=== PATIENT | female | born 1965 | race Caucasian/White ===

== ENCOUNTER → 2019-11-04 09:36 | Outpatient (CLI) | payer OTHER, SELFPAY ==
--- NOTE | 2019-11-04 09:42 | DI.RAD.S_ITS ---
PROCEDURE: XR SHOULDER LT MIN 2V INDICATIONS: LT shoulder pain TECHNIQUE: 3 views of the shoulder were acquired. COMPARISON: None. FINDINGS: Bones: No fractures or dislocations. No suspicious bony lesions. Visualized ribs appear intact. Soft tissues: No suspicious soft tissue calcifications. IMPRESSION: No acute fractures of the left shoulder. Dictated by: Ethan Solorzano M.D. on 11/04/2019 at 9:07 Approved by: Ethan Solorzano M.D. on 11/04/2019 at 9:09
== END ==
PROVIDERS: Referring Provider Physician Assistant; Visit Provider Physician Assistant
DX: M25.512 Pain in left shoulder (principal)
CPT/HCPCS: 73030

== ENCOUNTER → 2020-02-23 16:35 | Outpatient (CLI) | payer OTHER, SELFPAY ==
[2020-02-23 17:14] LABS: COVID19 -Nasal RAPID Negative (Negative)
== END ==
PROVIDERS: Visit Provider Physician Assistant
DX: Z11.59 Encounter for screening for other viral diseases (principal)
CPT/HCPCS: 87635

== ENCOUNTER 2020-03-19 21:21 | Emergency (ER) | payer OTHER, SELFPAY ==
[2020-03-19 21:29] VITALS: BP 144/78; PULSE 75; RESP 16; TEMP 36.8; O2SAT 100; BMI 39.3
--- NOTE | 2020-03-19 21:37 | ED.ABDPAIN ---
HPI - Abdominal Pain General Chief Complaint: Nausea/Vomiting/Diarrhea Stated Complaint: wants check for e coli Time Seen by Provider: 03/19/20 21:29 Source: patient Mode of arrival: Ambulatory Limitations: no limitations History of Present Illness HPI narrative: Patient is a 54-year-old female presenting with diarrhea ongoing for the last 5 days. She is concerned because she thinks she may have gotten E coli from [facility]. She says she ate a frozen was on his she was the only 1 to eat it 5 days ago within a few hours she vomited and had diarrhea. The vomiting has since stopped however the diarrhea has persisted she has had multiple episodes a day all water not bloody. She has been able to keep fluids down, but feels the go right through her. Today is the 1st day that she feels like she is able to eat some solids. She has no abdominal pain. She overall feels like she is improving today. She says today at least her stool is brown colored instead of watery colored Associated symptoms: vomiting and diarrhea Related Data Home Medications Medication Instructions Recorded Confirmed lisinopril 20 mg tablet 20 mg PO DAILY 11/04/19 02/23/20 metoprolol succinate 100 mg 200 mg PO DAILY each 11/04/19 02/23/20 capsule sprinkle, ext. release 24 hr paroxetine HCl 10 mg tablet 10 mg PO DAILY 11/04/19 02/23/20 Allergies Allergy/AdvReac Type Severity Reaction Status Date / Time cephalexin [From Keflex] Allergy Rash Verified 02/23/20 17:04 Penicillins Allergy rash Verified 02/23/20 17:04 Review of Systems Review of Systems Narrative: GENERAL: Denies chills, fatigue, malaise, fever, sweats, travel HEENT: Denies sinus pain, ear pain, sore throat, difficulty swallowing, neck pain RESPIRATORY: Denies dyspnea, cough, wheezing, hemoptysis, sputum. CARDIOVASCULAR: Denies chest pain, palpitations, orthopnea, edema GASTROINTESTINAL: See HPI : Denies dysuria, frequency, incontinence, hematuria, urinary retention, flank pain. MUSCULOSKELETAL: Denies weakness, joint pain, or bony pain SKIN: No rash, no erythema, no pruritus NEUROLOGIC: Denies weakness, dizziness, headache, numbness, change in speech, confusion PSYCHIATRIC: No concerning psychosocial issues. 12 point review of systems is negative except for those stated above and HPI Patient History Medical History Cough Exposure to COVID-19 virus Social History Smoking Status: Never smoker Exam Initial Vital Signs Initial Vital Signs: Vital Signs Temperature 98.2 F 03/19/20 21:29 Pulse Rate 75 03/19/20 21:29 Respiratory Rate 16 03/19/20 21:29 Blood Pressure 144/78 H 03/19/20 21:29 Pulse Oximetry 100 03/19/20 21:29 GENERAL: Well-appearing, well-nourished and in no acute distress. HEENT: Head atraumatic,EOMI, pupils reactive, face symmetric, moist mucous membranes CARDIOVASCULAR: Regular rate and rhythm without murmurs, rubs or gallops. RESPIRATORY: Breath sounds equal bilaterally, no wheezes rales or rhonchi. ABDOMEN: Soft, nontender. Normoactive bowel sounds all 4 quadrants. No guarding or rebound. EXTREMITIES: Normal range of motion, no clubbing or edema. Neurovascularly intact NEUROLOGICAL: Alert and oriented x4.Normal gait and speech. Cranial nerves II through XII grossly intact. SKIN: Warm, dry, no laceration, no petechiae, no rashes or lesions. Course Orders Ordered: ED Orders 03/19/20 21:38 GI Panel (Film Array) Stat Urine Culture Stat Urine Microscopic Stat 03/19/20 21:55 Complete Blood Count AUTO DIFF Stat Comprehensive Metabolic Panel Stat Lipase Stat Discontinued Medications Sodium Chloride (Normal Saline 0.9%) 1,000 mls @ 1,000 mls/hr IV CONT ROSAS Last Infusion: 03/19/20 23:51 Dose: 0 mls/hr Documented by: Admin: 03/19/20 22:11 Dose: 1,000 mls/hr Documented by: JENARO Vital Signs Vital signs: Vital Signs - 8 hr 03/19/20 21:29 03/19/20 23:07 03/20/20 00:00 Temperature 98.2 F Pulse Rate 75 76 74 Respiratory Rate 16 Blood Pressure 144/78 H 146/65 H Pulse Oximetry 100 97 98 03/20/20 00:04 Temperature Pulse Rate 76 Respiratory Rate 16 Blood Pressure Pulse Oximetry 98 MDM - Abdominal Pain Lab Data Attestation: I reviewed the patient's lab results. Result diagrams: 03/19/20 21:55 03/19/20 21:55 Labs: Lab Results 03/19/20 03/19/20 03/19/20 Range/Units 21:38 21:38 21:55 WBC 8.8 (4.5-11.0) X10^3/uL RBC 5.36 H (4.0-5.2) X10^6/uL Hgb 13.9 (12.0-16.0) g/dL Hct 43.3 (36-46) % MCV 80.8 (80-100) fL MCH 26.0 (26-34) PG MCHC 32.2 (30-36) % RDW 14.4 (11.6-14.8) % Plt Count 268 (150-400) X10^3/uL Neut % (Auto) 62.8 (50-75) % Lymph % (Auto) 23.6 L (25-40) % [place] % (Auto) 12.4 (3-14) % Eos % (Auto) 0.8 L (2-4) % Baso % (Auto) 0.4 (0-2) % Neut # (Auto) 5500 (6618-7845) /uL Lymph # (Auto) 2100 (4522-8024) /uL [place] # (Auto) 1100 H (0-900) /uL Eos # (Auto) 100 (0-450) /uL Baso # (Auto) 0 (0-100) /uL Sodium (137-145) mmol/L Potassium (3.4-5.1) mmol/L Chloride (98-107) mmol/L Carbon Dioxide (22-32) mmol/L BUN (7-17) mg/dL Creatinine (0.52-1.04) mg/dL Estimated GFR (>60) mL/min BUN/Creatinine Ratio (6-22) Glucose (70-100) mg/dL Calcium (8.4-10.2) mg/dL Total Bilirubin (0.2-1.3) mg/dL AST (14-36) IU/L ALT (<35) IU/L Alkaline Phosphatase (38-126) U/L Total Protein (6.3-8.2) g/dL Albumin (3.5-5.0) g/dL Globulin (1.7-4.1) g/dL Albumin/Globulin Ratio (1.0-2.8) Lipase (23-300) U/L Urine RBC 1-5/hpf (0-5/HPF) Urine WBC 5-10/hpf H (0-5/HPF) Ur Squamous Epith Cells 1-5 /hpf (0-5/HPF) Urine Bacteria Moderate (10-30) H (None) Hyaline Casts 1-5/lpf (None) Granular Casts 0-1/lpf (None) Ur Culture Indicated? Specimen cultured Stl C. cayetanensis PCR Not detected (Not Detect) Stool Rotavirus (PCR) Not detected (Not Detect) Stool Adenovirus (PCR) Not detected (Not Detect) Stool Astrovirus (PCR) Not detected (Not Detect) Stool Cryptosporidium PCR Not detected (Not Detect) Stl E.coli Shiga Tox PCR Not detected (Not Detect) St Sh/Enteroin Ecoli PCR Detected H (Not Detect) Stool E coli O157 PCR Not detected (Not Detect) Stl Enterotoxigenic E PCR Detected H (Not Detect) Stool EPEC (PCR) Detected H (Not Detect) Stl E. histolytica PCR Not detected (Not Detect) Stool Giardia Lamblia PCR Not detected (Not Detect) Stool Sapovirus (PCR) Not detected (Not Detect) Stl P. shigelloides PCR Not detected (Not Detect) St Y.enterocolitica PCR Not detected (Not Detect) Stool Vibrio (PCR) Not detected (Not Detect) Stl Vibrio cholerae PCR Not detected (Not Detect) Stl Enteroaggr Ecoli PCR Detected H (Not Detect) Stl Norovirus GI/GII PCR Detected H (Not Detect) Campylobacter (PCR) Not detected (Not Detect) C. difficile Tox (PCR) Not detected (Not Detect) Salmonella (PCR) Not detected (Not Detect) 03/19/20 Range/Units 21:55 WBC (4.5-11.0) X10^3/uL RBC (4.0-5.2) X10^6/uL Hgb (12.0-16.0) g/dL Hct (36-46) % MCV (80-100) fL MCH (26-34) PG MCHC (30-36) % RDW (11.6-14.8) % Plt Count (150-400) X10^3/uL Neut % (Auto) (50-75) % Lymph % (Auto) (25-40) % Brewster % (Auto) (3-14) % Eos % (Auto) (2-4) % Baso % (Auto) (0-2) % Neut # (Auto) (3056-2892) /uL Lymph # (Auto) (2388-9419) /uL Brewster # (Auto) (0-900) /uL Eos # (Auto) (0-450) /uL Baso # (Auto) (0-100) /uL Sodium 142 (137-145) mmol/L Potassium 3.6 (3.4-5.1) mmol/L Chloride 110 H (98-107) mmol/L Carbon Dioxide 24 (22-32) mmol/L BUN 17 (7-17) mg/dL Creatinine 0.95 (0.52-1.04) mg/dL Estimated GFR > 60.0 (>60) mL/min BUN/Creatinine Ratio 17.9 (6-22) Glucose 94 (70-100) mg/dL Calcium 9.4 (8.4-10.2) mg/dL Total Bilirubin 1.0 (0.2-1.3) mg/dL AST 39 H (14-36) IU/L ALT 39 H (<35) IU/L Alkaline Phosphatase 73 (38-126) U/L Total Protein 8.3 H (6.3-8.2) g/dL Albumin 4.4 (3.5-5.0) g/dL Globulin 3.9 (1.7-4.1) g/dL Albumin/Globulin Ratio 1.1 (1.0-2.8) Lipase 72 (23-300) U/L Urine RBC (0-5/HPF) Urine WBC (0-5/HPF) Ur Squamous Epith Cells (0-5/HPF) Urine Bacteria (None) Hyaline Casts (None) Granular Casts (None) Ur Culture Indicated? Stl C. cayetanensis PCR (Not Detect) Stool Rotavirus (PCR) (Not Detect) Stool Adenovirus (PCR) (Not Detect) Stool Astrovirus (PCR) (Not Detect) Stool Cryptosporidium PCR (Not Detect) Stl E.coli Shiga Tox PCR (Not Detect) St Sh/Enteroin Ecoli PCR (Not Detect) Stool E coli O157 PCR (Not Detect) Stl Enterotoxigenic E PCR (Not Detect) Stool EPEC (PCR) (Not Detect) Stl E. histolytica PCR (Not Detect) Stool Giardia Lamblia PCR (Not Detect) Stool Sapovirus (PCR) (Not Detect) Stl P. shigelloides PCR (Not Detect) St Y.enterocolitica PCR (Not Detect) Stool Vibrio (PCR) (Not Detect) Stl Vibrio cholerae PCR (Not Detect) Stl Enteroaggr Ecoli PCR (Not Detect) Stl Norovirus GI/GII PCR (Not Detect) Campylobacter (PCR) (Not Detect) C. difficile Tox (PCR) (Not Detect) Salmonella (PCR) (Not Detect) Point of care testing: Urine Dip Bedside Urine Glucose Negative Bedside Urine Bilirubin ++ 2 Bedside Urine Ketone +/- 5 Urine Specific [place] 1.030 Bedside Urine Occult Blood - Negative Bedside Urine pH 5.5 Bedside Urine Protein + 30 Bedside Urine Urobilinogen - Negative Bedside Urine Nitrite - Negative Bedside Urine Leukocytes + 70 Esterase MDM Narrative Medical decision making narrative: The patient overall appears well not dehydrated clinically or by labs and hemodynamically stable she has no leukocytosis she is afebrile. She has multiple strains of E coli and norovirus detected in her GI panel. At this time no indication for antibiotic treatment. She said she is clinically starting to improve she is tolerating food and diarrhea does seem to be slowing. Although she has had few episodes in the ED. at this time I recommend she follow up outpatient with her PCP and return to the ED if needed. Discharge Plan Departure Patient Disposition: Home Clinical Impression: Norovirus, E. coli gastroenteritis Instructions: Norovirus Infection, DI for Bacterial Gastroenteritis -- Adult Activity Restrictions/Additional Instructions: *You have been diagnosed with gastroenteritis both E coli and norovirus *What to do: At this time I think we should let your body try to heal on its own with out antibiotics. However if your symptoms worsen you may require antibiotics. Please increase her fluid intake with things like Gatorade, broth, Jell-O, applesauce etc. you may increase food intake as you feel it is tolerated *Continue to take medications as directed Imodium-take as directed do not exceed more than 4 tabs in 24 hours *Follow up with your primary care provider in 2-3 days *Return to ER if you should have fever, not tolerating fluids, pain or any new, worsening or concerning symptoms Prescriptions: No Action paroxetine HCl [Paxil] 10 mg tablet 10 mg PO DAILY RF: 0 lisinopril 20 mg tablet 20 mg PO DAILY RF: 0 metoprolol succinate 100 mg capsule,sprinkle,ER 24hr 200 mg PO DAILY RF: 0 Referrals: Miscellaneous,Doctor, MD [Primary Care Provider] -
[2020-03-19] MEDS: SODIUM CHLORIDE 0.9% 1,000 ML 1000 ML IV (22:11)
[2020-03-19 22:20] LABS: Alanine Aminotransferase 39 IU/L (<35); Albumin 4.4 g/dL (3.5-5.0); Albumin Globulin Ratio 1.1 (1.0-2.8); Alkaline Phosphatase 73 U/L (38-126); Aspartate Aminotransferase 39 IU/L (14-36); BUN Creatinine Ratio 17.9 (6-22); Blood Urea Nitrogen 17 mg/dL (7-17); Calcium 9.4 mg/dL (8.4-10.2); Carbon Dioxide 24 mmol/L (22-32); Chloride 110 mmol/L (98-107); Estimated Glomerular Filt Rate > 60.0 mL/min (>60); Globulin 3.9 g/dL (1.7-4.1); Glucose 94 mg/dL (70-100); HEMOLYSIS 21 (0-50); Lipase 72 U/L (23-300); Potassium 3.6 mmol/L (3.4-5.1); Sodium 142 mmol/L (137-145); Total Protein 8.3 g/dL (6.3-8.2)
[2020-03-19 22:25] LABS: Add Manual Diff / Slide Review NO; Basophils Absolute Auto 0 /uL (0-100); Basophils Percent Auto 0.4 % (0-2); Eosinophils Absolute Auto 100 /uL (0-450); Eosinophils Percent Auto 0.8 % (2-4); Hematocrit 43.3 % (36-46); Hemoglobin 13.9 g/dL (12.0-16.0); Lymphocytes Absolute Auto 2100 /uL (1100-4500); Lymphocytes Percent Auto 23.6 % (25-40); Mean Corpuscular HGB Conc 32.2 % (30-36); Mean Corpuscular Volume 80.8 fL (80-100); Monocytes Absolute Auto 1100 /uL (0-900); Monocytes Percent Auto 12.4 % (3-14); Neutrophils Absolute Auto 5500 /uL (1500-7000); Neutrophils Percent Auto 62.8 % (50-75); Platelet Count 268 X10^3/uL (150-400); Red Blood Cell Count 5.36 X10^6/uL (4.0-5.2); Red Cell Distribution Width 14.4 % (11.6-14.8); White Blood Cell Count 8.8 X10^3/uL (4.5-11.0)
[2020-03-19 22:31] LABS: RBC Urine 1-5/HPF (0-5/HPF); Squamous Epithelial Cell Urine 1-5 /HPF (0-5/HPF); WBC Urine 5-10/HPF (0-5/HPF)
[2020-03-19 22:32] LABS: Bacteria Urine Moderate (10-30); Culture Indicated Urine Specimen Cultured; Granular Casts Urine 0-1/LPF; Hyaline Casts Urine 1-5/LPF
[2020-03-19 23:07] VITALS: PULSE 76; O2SAT 97
[2020-03-19 23:18] LABS: Campylobacter Not Detected (Not Detect); Clostridium difficile toxin AB Not Detected (Not Detect); Enteroaggregative E.coli Detected (Not Detect); Enteropathogenic E.coli Detected (Not Detect); Enterotoxigenic E.coli It/st Detected (Not Detect); Plesiomonsa shigelloides Not Detected (Not Detect); Salmonella Not Detected (Not Detect); Shiga-like toxin-prod E.coli Not Detected (Not Detect); Vibrio Not Detected (Not Detect); Vibrio cholerae Not Detected (Not Detect); Yersinia enterocolitica Not Detected (Not Detect)
[2020-03-19 23:19] LABS: Adenovirus F 40/41 Not Detected (Not Detect); Astrovirus Not Detected (Not Detect); Cryptosporidium Not Detected (Not Detect); Cyclospora cayetanensis Not Detected (Not Detect); Entamoeba histolytica Not Detected (Not Detect); Giardia lamblia Not Detected (Not Detect); Norovirus GI/GII Detected (Not Detect); Rotavirus A Not Detected (Not Detect); Sapovirus Not Detected (Not Detect)
[2020-03-20] VITALS: BP 146/65; PULSE 74; O2SAT 98
[2020-03-20 00:04] VITALS: PULSE 76; RESP 16; O2SAT 98
[2020-03-20 15:02] LABS: Shigella/Enteroinvasive E.coli Detected (Not Detect)
== END 2020-03-20 00:10 | disposition home or self-care (01) ==
PROVIDERS: Emergency Provider Emergency Medicine
DX: K52.9 Noninfective gastroenteritis and colitis, unspecified (principal); A08.11 Acute gastroenteropathy due to Norwalk agent; A04.4 Other intestinal Escherichia coli infections; R11.2 Nausea with vomiting, unspecified
CPT/HCPCS: 36415; 80053; 81003; 81015; 83690; 85025; 87077; 87086; 87186; 87507; 96360; 96361; 99283; 99284

== ENCOUNTER → 2020-05-07 13:14 | Outpatient (CLI) | payer OTHER, SELFPAY ==
[2020-05-07 14:03] LABS: COVID19 -Nasal RAPID Negative (Negative)
== END ==
PROVIDERS: Visit Provider Physician Assistant
DX: Z20.822 Contact with and (suspected) exposure to COVID-19 (principal); R05 Cough
CPT/HCPCS: 87635

== ENCOUNTER → 2021-05-21 17:56 | Outpatient (CLI) | payer OTHER, SELFPAY | PROVIDERS: Visit Provider Nurse Practitioner Family | DX: N34.3 Urethral syndrome, unspecified (principal) | CPT/HCPCS: 87086 ==

== ENCOUNTER 2021-05-21 18:34 | Emergency (ER) | payer OTHER, SELFPAY ==
[2021-05-21 18:45] VITALS: BP 216/91; PULSE 58; RESP 18; TEMP 36.6; O2SAT 95; BMI 36.8
--- NOTE | 2021-05-21 21:15 | ED.GENADULT ---
HPI - General Adult General Chief complaint: Urogenital-Female Stated complaint: Possible Kidney Stones Time Seen by Provider: 05/21/21 21:15 Source: patient Mode of arrival: Ambulatory History of Present Illness HPI narrative: 55-year-old woman with hypertension, depression just a couple of weeks ago presents with left flank pain noted for the last 48 hours Pain was worse this morning was deep in the left flank and described as severe associated with a sense of bladder fullness and frequency. She was seen at urgent care earlier and urinalysis showed blood but no leukocytes or nitrates. She is seen by her chiropractor in with some adjustments of some of her other musculoskeletal complaints are improved. She notes that about a week ago while she was on her honeymoon in [place] she twisted her left ankle and left knee which was causing some back pain. The chiropractor was able to alleviate the majority of those issues however the left flank pain, while somewhat improved, is still present. She still has the bladder fullness and sense of frequency. She describes no vaginal discharge. She has an episode of constipation a couple of days ago that was treated with Pepto-Bismol had a large hard stool with some bright red blood on the outside but a normal stool noted today. She describes no fevers, cough, vomiting, nausea. No headaches. No skin changes. She also has some concerns about her blood pressure. Related Data Home Medications Medication Instructions Recorded Confirmed lisinopril 20 mg tablet 20 mg PO DAILY 11/04/19 05/21/21 metoprolol succinate 100 mg 200 mg PO DAILY each 11/04/19 05/21/21 capsule sprinkle, ext. release 24 hr paroxetine HCl 10 mg tablet (Paxil) 10 mg PO DAILY 11/04/19 05/21/21 Previous Rx's Medication Instructions Recorded albuterol sulfate 90 mcg/actuation 1 inh INHALATION Q4-6H PRN #18 g 05/07/20 aerosol inhaler benzonatate 100 mg capsule 100 mg PO BEDTIME #20 cap 05/07/20 sulfamethoxazole 800 1 tab PO BID #10 tab 05/21/21 mg-trimethoprim 160 mg tablet (Bactrim DS) Allergies Allergy/AdvReac Type Severity Reaction Status Date / Time cephalexin [From Keflex] Allergy Rash Verified 05/21/21 18:50 Penicillins Allergy rash Verified 02/07/22 18:50 Review of Systems Review of Systems Narrative: Remainder of complete review of systems is otherwise unremarkable except for that included in the HPI. Patient History Medical History Cough Exposure to COVID-19 virus Social History Smoking Status: Never smoker Smoking Status: Never smoker alcohol intake frequency: holidays/special occasions only Substance Use Type: does not use Exam Initial Vital Signs Initial Vital Signs: Vital Signs Temperature 97.9 F 05/21/21 18:45 Pulse Rate 58 L 05/21/21 18:45 Respiratory Rate 18 05/21/21 18:45 Blood Pressure 216/91 H 05/21/21 18:45 Pulse Oximetry 95 05/21/21 18:45 General: Healthy appearing, in no acute distress. Able to give a complete and coherent history. Well-nourished well-developed HEENT: Moist mucous membranes, normal sclera with reactive pupils, Respiratory: Lungs are clear to auscultation, no wheezing no rales no rhonchi. Full and symmetrical air movement Cardiac: Regular rate and rhythm no murmurs no bruits Abdomen: Soft, nontender, good bowel tones, mild left flank pain. Skin: Warm and dry, no rashes, no abnormalities around the flank/area of tenderness Neurologic: Grossly neurologically intact with no obvious asymmetries or abnormalities Extremities: No trauma, well perfused Psych: Cooperative, appropriate insight and affect Course Orders Ordered: ED Orders 05/21/21 21:28 CT kidney ureter bladder (KUB) Stat 05/21/21 21:54 Urine Culture Stat Discontinued Medications Trimethoprim/Sulfamethoxazole (Trimeth/Sulfa 160/800 (Ds) Tablet) 1 tab PO NOW ONE Stop: 05/21/21 21:55 Vital Signs Vital signs: Vital Signs - 8 hr 05/21/21 18:45 05/21/21 21:44 Temperature 97.9 F Pulse Rate 58 L Respiratory Rate 18 Blood Pressure 216/91 H 186/86 H Pulse Oximetry 95 Medical Decision Making Imaging Data CT scan - abdomen/pelvis: Radiologist's Impression: FINDINGS:? Image quality:? Excellent.? ? Lung bases:? Unremarkable.? ? Heart:? No significant findings. ? URINARY: Right Kidney: ? No stones or hydronephrosis.? Right Ureter:? No kidney stone.? The distal ureters have surrounding inflammation. ? Left Kidney: ? No stones or hydronephrosis. Left Ureter:? No kidney stone.? The distal ureters have surrounding inflammation. ? Bladder:? Normal wall thickness. No stones. ? ? ? ABDOMEN: Liver:? Unremarkable.? ? Gallbladder:? Unremarkable.? ? Biliary ducts:? Unremarkable.? ? Pancreas:? Unremarkable.? ? Spleen:? Unremarkable.? ? Adrenal Glands:? Unremarkable.? ? ? Stomach and Bowel:? Stomach, small bowel loops, and colon are unremarkable.? Small hiatal hernia Peritoneum:? No abnormal intraperitoneal fluid.? No free air.? The appendix is normal.? Approved report ? Ventral Wall: ? No hernia.? Abdominal Nodes:? No enlarged retroperitoneal or mesenteric lymph nodes.? Vessels:? Aorta and inferior vena cava are normal in size.? ? PELVIS: Pelvic Organs:? Unremarkable.? ? Pelvic Nodes: Unremarkable. Miscellaneous: No inguinal hernias are seen. ? ? ? Bones:? Unremarkable. ? IMPRESSION:? Inflammation along the courses of both ureters suspicious for urinary tract infection, no kidney stone identified.? Please correlate with urinalysis. ? ? Dictated by: Elton Miller M.D. on 05/21/2021 at 21:41? ?? MDM Narrative Medical decision making narrative: 55-year-old woman suspect from her honeymoon complaining of left flank pain. Initial urinalysis showed only blood however CT scan suggests bilateral distal ureteral inflammation more consistent with a bladder infection. Will have her collect a another urine sample and send just for culture and will begin her on 5 days of with a presumptive urinary tract infection diagnosis. Findings are reviewed with her. Lack of findings including no evidence of kidney stones, abdominal masses or tumors, diverticulitis, appendicitis and colitis are all ruled out with this reassuring CT scan. Questions are answered she is safe for home discharge Discharge Plan Departure Patient Disposition: Home Clinical Impression: Urinary tract infection Qualifiers: Urinary tract infection type: acute cystitis Hematuria presence: with hematuria Qualified Code(s): N30.01 - Acute cystitis with hematuria High blood pressure Qualifiers: Hypertension type: primary hypertension Qualified Code(s): I10 - Essential (primary) hypertension Instructions: DI for Kidney Infection, DI for Urinary Tract Infection (UTI) Activity Restrictions/Additional Instructions: Thank you for coming in today Your initial urinalysis showed blood but no obvious signs of urinary tract infection. Follow-up CT scan shows very normal findings with no significant intra-abdominal or pelvic pathology aside from some mild swelling in the distal part of the ureters. The ureters at the tubes that connect the kidneys to the bladder and swelling in this area typically suggests a bladder infection. I have sent your urine sample for culture and if it ends up growing a bacteria that is not appropriately treated with Septra/Bactrim then we will call you with the change in antibiotics. Have given you a prescription for Bactrim to be taken for 5 days, morning and evening. Prescription was electronically transmitted to [facility]. Using 400 mg of ibuprofen (2 [id number] pills) and 1 Tylenol every 6 hours can be very helpful in controlling pain. When you order picker the antibiotics, I would recommend picking up a blood pressure cuff as well. Please keep track of your blood pressures over the next couple of days and bring those numbers in to your doctor appointment when you meet Dr. Fuller so that you can discuss your blood pressure and blood pressure medications. If you have new or worsening symptoms please feel free to return to the ER Prescriptions: New sulfamethoxazole-trimethoprim [Bactrim DS] 800-160 mg tablet 1 tab PO BID Qty: 10 0RF No Action paroxetine HCl [Paxil] 10 mg tablet 10 mg PO DAILY 0RF lisinopril 20 mg tablet 20 mg PO DAILY 0RF metoprolol succinate 100 mg capsule,sprinkle,ER 24hr 200 mg PO DAILY 0RF albuterol sulfate 90 mcg/actuation HFA aerosol inhaler 1 inh inhalation Q4-6H PRN (Reason: shortness of breath) Qty: 18 0RF benzonatate 100 mg capsule 100 mg PO BEDTIME Qty: 20 0RF Referrals: Miscellaneous,Doctor, MD [Primary Care Provider] -
--- NOTE | 2021-05-21 21:28 | DI.CT.S_ITS ---
PROCEDURE: CT KIDNEY URETER BLADDER (KUB) INDICATIONS: left flank pain, possible stone TECHNIQUE: Axial sections were acquired from the lung bases to the pubic symphysis. Coronal and sagittal reformats were performed. For radiation dose reduction, the following was used: automated exposure control, adjustment of mA and/or kV according to patient size. COMPARISON: None. FINDINGS: Image quality: Excellent. Lung bases: Unremarkable. Heart: No significant findings. URINARY: Right Kidney: No stones or hydronephrosis. Right Ureter: No kidney stone. The distal ureters have surrounding inflammation. Left Kidney: No stones or hydronephrosis. Left Ureter: No kidney stone. The distal ureters have surrounding inflammation. Bladder: Normal wall thickness. No stones. ABDOMEN: Liver: Unremarkable. Gallbladder: Unremarkable. Biliary ducts: Unremarkable. Pancreas: Unremarkable. Spleen: Unremarkable. Adrenal Glands: Unremarkable. Stomach and Bowel: Stomach, small bowel loops, and colon are unremarkable. Small hiatal hernia Peritoneum: No abnormal intraperitoneal fluid. No free air. The appendix is normal. Approved report Ventral Wall: No hernia. Abdominal Nodes: No enlarged retroperitoneal or mesenteric lymph nodes. Vessels: Aorta and inferior vena cava are normal in size. PELVIS: Pelvic Organs: Unremarkable. Pelvic Nodes: Unremarkable. Miscellaneous: No inguinal hernias are seen. Bones: Unremarkable. IMPRESSION: Inflammation along the courses of both ureters suspicious for urinary tract infection, no kidney stone identified. Please correlate with urinalysis. Dictated by: Elton Miller M.D. on 05/21/2021 at 21:41 Approved by: Elton Miller M.D. on 05/21/2021 at 21:47
[2021-05-21 21:44] VITALS: BP 186/86
[2021-05-21] MEDS: TRIMETH/SULFA 160/800 (DS) TABLET 1 TAB PO (22:30)
== END 2021-05-21 22:36 | disposition home or self-care (01) ==
PROVIDERS: Emergency Provider Emergency Medicine
DX: N30.01 Acute cystitis with hematuria (principal); I10 Essential (primary) hypertension; N34.3 Urethral syndrome, unspecified
CPT/HCPCS: 74176; 87077; 87086; 87186; 99284

== ENCOUNTER 2022-09-14 08:24 | Emergency (ER) | payer OTHER, SELFPAY ==
[2022-09-14 08:29] VITALS: BP 188/91; PULSE 82; RESP 20; TEMP 36.6; O2SAT 97; BMI 30.9
[2022-09-14 11:32] VITALS: BP 171/89; PULSE 66; RESP 18; O2SAT 98
--- NOTE | 2022-09-14 11:50 | ED.DENTAL ---
HPI - Dental/Oral <BRANDY Moreno - Last Filed: 09/14/22 11:55> General Chief complaint: Dental/Oral Stated complaint: RT side of facing swelling T-2 infection in gum Time Seen by Provider: 09/14/22 10:17 Source: patient Mode of arrival: Family Vehicle History of Present Illness HPI Narrative: 57-year-old female, nonsmoker, presents to the walk-in clinic with suspected right-sided upper dental abscess x3 days. Patient has been taking ibuprofen along with warm salt water swish and spit, but symptoms are persistent. Patient has noticed that she is developing some facial swelling, adjacent to the painful gum region. Patient recently saw her dentist for evaluation of an old implant but no treatment on the affected side her mouth. Pain is currently at 5/10. Related Data Home Medications Medication Instructions Recorded Confirmed lisinopril 20 mg tablet 20 mg PO DAILY 11/04/19 05/21/21 metoprolol succinate 100 mg 200 mg PO DAILY 11/04/19 05/21/21 capsule sprinkle, ext. release 24 hr paroxetine HCl 10 mg tablet (Paxil) 10 mg PO DAILY 11/04/19 05/21/21 Previous Rx's Medication Instructions Recorded albuterol sulfate 90 mcg/actuation 1 inh inhalation Q4-6H PRN 05/07/20 aerosol inhaler shortness of breath #18 grams benzonatate 100 mg capsule 100 mg PO BEDTIME #20 caps 05/07/20 sulfamethoxazole 800 1 tab PO BID #10 tabs 05/21/21 mg-trimethoprim 160 mg tablet (Bactrim DS) amoxicillin 875 mg-potassium 1 tab PO BID Dental abscess 10 09/14/22 clavulanate 125 mg tablet days #20 tabs oxycodone-acetaminophen 5 mg-325 1 tab PO Q4-6H PRN pain #10 tabs 09/14/22 mg tablet (Percocet) Allergies Allergy/AdvReac Type Severity Reaction Status Date / Time cephalexin [From Keflex] Allergy Rash Verified 09/14/22 08:35 Penicillins Allergy rash Verified 09/14/22 08:35 Review of Systems <BRANDY Moreno - Last Filed: 09/14/22 11:55> Review of Systems Narrative: Narrative: See HPI. GENERAL: Denies chills, fatigue, fever, sweats. HEENT: Denies sinus pain, ear pain, sore throat, difficulty swallowing, dizziness. Endorses right-sided gum pain and mild facial swelling. RESPIRATORY: Denies dyspnea, cough, wheezing, sputum. CARDIOVASCULAR: Denies chest pain, palpitations, edema. GASTROINTESTINAL: Denies nausea, vomiting, abdominal pain, diarrhea, constipation. : Denies dysuria, frequency, incontinence, hematuria, urinary retention, flank pain. MSK: Denies weakness, joint pain, or bony pain. SKIN: Denies rash, skin lesions, or pruritis. NEUROLOGIC: Denies weakness, dizziness, headache, numbness, confusion. PSYCHIATRIC: No concerning psychosocial issues. Patient History <BRANDY Moreno - Last Filed: 09/14/22 11:55> Medical History Cough Exposure to COVID-19 virus Social History Smoking Status: Never smoker Smoking Status: Never smoker alcohol intake frequency: holidays/special occasions only Substance Use Type: does not use Exam <BRANDY Moreno - Last Filed: 09/14/22 11:55> Narrative Exam Narrative: Exam Narrative: GENERAL: This is a well-nourished, well-developed patient, in no acute distress. HEAD: Atraumatic. Normocephalic. EYES: Pupils equal round and reactive. Extraocular motions intact. No scleral icterus, injection or drainage. ENT: Nose without bleeding, purulent drainage. Throat without erythema, tonsillar hypertrophy or exudate. Uvula midline. Airway patent. NECK: Trachea midline. No JVD or lymphadenopathy. Nontender. CARDIOVASCULAR: Regular rate and rhythm without murmurs, peripheral pulses intact, cap refill <2 sec. RESPIRATORY: Breath sounds equal and clear bilaterally. No wheezes, rales, or rhonchi. No cough. No increased respiratory effort. No accessory muscle use. MSK: Moves all extremities. Normal range of motion, no clubbing or edema. Neurovascularly intact. NEURO: A&O x 3. SKIN: Warm, dry, no rashes or lesions noted. Mild right-sided facial swelling with no increased redness, warmth or signs of cellulitis. Initial Vital Signs Initial Vital Signs: Vital Signs Temperature 97.9 F 09/14/22 08:29 Pulse Rate 82 09/14/22 08:29 Respiratory Rate 20 09/14/22 08:29 Blood Pressure 188/91 H 09/14/22 08:29 Pulse Oximetry 97 09/14/22 08:29 Oxygen Delivery Method Room Air 09/14/22 08:29 Reviewed <Ayanna Hernandez DO - Last Filed: 09/15/22 06:55> Initial Vital Signs Initial Vital Signs: Vital Signs Temperature 97.9 F 09/14/22 08:29 Pulse Rate 82 09/14/22 08:29 Respiratory Rate 20 09/14/22 08:29 Blood Pressure 188/91 H 09/14/22 08:29 Pulse Oximetry 97 09/14/22 08:29 Oxygen Delivery Method Room Air 09/14/22 08:29 Course <BRANDY Moreno - Last Filed: 09/14/22 11:55> Vital Signs Vital signs: Vital Signs - 8 hr 09/14/22 08:29 09/14/22 11:32 Temperature 97.9 F Pulse Rate 82 66 Respiratory Rate 20 18 Blood Pressure 188/91 H 171/89 H Pulse Oximetry 97 98 Oxygen Delivery Method Room Air Room Air <Ayanna Hernandez DO - Last Filed: 09/15/22 06:55> Vital Signs Vital signs: Vital Signs - 8 hr 09/14/22 08:29 09/14/22 11:32 Temperature 97.9 F Pulse Rate 82 66 Respiratory Rate 20 18 Blood Pressure 188/91 H 171/89 H Pulse Oximetry 97 98 Oxygen Delivery Method Room Air Room Air MDM - Dental/Oral <BRANDY Moreno - Last Filed: 09/14/22 11:55> Differential Diagnosis Differential diagnosis: Likely dental abscess; Unlikely fracture of tooth MDM Narrative Medical decision making narrative: 57-year-old female, nonsmoker presents to the emergency department with suspected right-sided dental abscess. Pain and swelling noted to right upper gum adjacent to tooth #5. History of rash with penicillin. Will treat the dental abscess with Augmentin and a short course of pain medication for breakthrough pain, in case ibuprofen and do not control her pain. Instructed patient to follow up with her dentist or family doctor as needed with strict ER return precautions provided to patient and spouse. Patient and spouse verbalized understanding and were agreeable to course of action. Discharge Plan Departure Patient Disposition: Home Clinical Impression: Dental abscess Instructions: DI for Dental Pain Activity Restrictions/Additional Instructions: *You have been diagnosed with a dental abscess. We will treat this with Augmentin and a short course of pain medication. If at any point you develop shortness of breath, sensation that her throat is closing or hives, please stop taking the antibiotics and return to the emergency department immediately. Otherwise, please follow-up with your dentist on Friday to ensure symptoms are improving. Additionally, you may follow up with your family doctor as needed. *What to do: *Please continue to take your regular medications as directed. [x ] New medication prescriptions sent to your pharmacy: [[facility]] [ ] New medication written as a paper prescription [ ] No new medications given *Please follow up with your primary care provider in 2-3 days, call for an appointment. Let them know you were seen in the Emergency Department and that we ask that you be seen in follow up. We will electronically transmit a record of today's note if your PCP is in our system *If you do not have a primary care provider please contact the [facility] Resource line at [phone]. They will ask some questions about your medical history and help get you set up with a doctor in the community. ? Return to ER if you should have any new, worsening or concerning symptoms, such as worsening pain, severe headache, confusion, chest pain, difficulty breathing, fever greater than 101 F, shaking chills, persistent vomiting to the point that you cannot drink fluids, or other new or worsening symptoms. Prescriptions: New amoxicillin-pot clavulanate 875-125 mg tablet 1 tab PO BID 10 Days Qty: 20 0RF oxycodone-acetaminophen [Percocet] 5-325 mg tablet 1 tab PO Q4-6H PRN (Reason: pain) Qty: 10 0RF No Action paroxetine HCl [Paxil] 10 mg tablet 10 mg PO DAILY lisinopril 20 mg tablet 20 mg PO DAILY metoprolol succinate 100 mg capsule,sprinkle,ER 24hr 200 mg PO DAILY albuterol sulfate 90 mcg/actuation HFA aerosol inhaler 1 inh inhalation Q4-6H PRN (Reason: shortness of breath) Qty: 18 0RF benzonatate 100 mg capsule 100 mg PO BEDTIME Qty: 20 0RF sulfamethoxazole-trimethoprim [Bactrim DS] 800-160 mg tablet 1 tab PO BID Qty: 10 0RF Referrals: Miscellaneous,Doctor, MD [Primary Care Provider] - Stand Alone Forms: Patient Portal/API <Ayanna Hernandez DO - Last Filed: 09/15/22 06:55> Cosign ED Attending Bev Attestation: I was immediately available in the department for consultation. Documentation has been reviewed.
== END 2022-09-14 11:55 | disposition home or self-care (01) ==
PROVIDERS: Emergency Provider Registered Nurse
DX: K04.7 Periapical abscess without sinus (principal)
CPT/HCPCS: 99281